=== PATIENT | female | born 1935 | race Caucasian/White ===

== ENCOUNTER → 2023-03-25 | Outpatient (REF) | payer MEDICARE, OTHER | LOC: M SFHCDERM 17:39 | PROVIDERS: ATTEND Physician Assistant | DX: L82.1 Other seborrheic keratosis (principal) ==

== ENCOUNTER → 2024-03-23 | Outpatient (REF) | payer OTHER | LOC: M SFHCDERM 17:35 | PROVIDERS: ATTEND Physician Assistant | DX: B07.9 Viral wart, unspecified (principal) ==